=== PATIENT | male | born 1980 | race Caucasian/White ===

== ENCOUNTER 2018-10-18 21:46 | Inpatient (IN) | payer BC ==
[~2018-10-18] VITALS: Ht 177.8 cm; Wt 80.3 kg
[2018-10-18 22:42] VITALS: Ht 177.8 cm; Wt 80.3 kg
[2018-10-18 23:38] LABS: BASOPHIL % 1.1 % (0-2); PLATELET COUNT 266 x10^3mcL (130-400); RED CELL DISTRIBUTION WIDTH 12.4 % (11.5-14.5)
[2018-10-18 23:55] LABS: CALCIUM 8.8 mg/dL (8.5-10.1); CARBON DIOXIDE 19.2 mmol/L (21-32); CHLORIDE SERUM 107 mmol/L (98-107); CREATININE SERUM 1.1 mg/dL (0.7-1.3); GFR1 > 60 mL/min; GLUCOSE SERUM 112 mg/dL (74-106); POTASSIUM SERUM 3.5 mmol/L (3.5-5.1); SODIUM SERUM 140 mmol/L (136-145)
[2018-10-19] LABS: ALKALINE PHOSPHATASE 48 U/L (46-116); ALT/SGPT 39 U/L (16-63); AST/SGOT 22 U/L (15-37); BILIRUBIN TOTAL 0.6 mg/dL (0.20-1.00); LIPASE 80 IU/L (73-393); TOTAL PROTEIN, SERUM 7.8 g/dL (6.4-8.2)
[2018-10-19] MEDS ORDERED: AMOXICILLIN500 M1 PO (01:54)
[2018-10-19] MEDS ORDERED: IBUPROFEN400 MG PO (01:55)
[2018-10-19 04:09] LABS: MAGNESIUM 1.9 mg/dL (1.8-2.4); PHOSPHOROUS 1.1 mg/dL (2.5-4.9)
[2018-10-19 04:10] LABS: CHOLESTEROL/HDL RATIO 2.3
[2018-10-19 04:15] LABS: T3 TOTAL 1.6 ng/mL
[2018-10-19 04:22] LABS: FREE T4 1.28 ng/dL (0.76-1.46); FREE THYROXINE INDEX 3.5 ug/dL (1.4-4.5); T4(THYROXINE) 9.6 ug/dL (4.7-13.3)
[2018-10-19 04:22] LABS: microscopic required? YES; urine erythrocyte TRACE (NEGATIVE)
[2018-10-19 04:36] LABS: AMPHETAMINE QUAL UR NONE DETECTED (See below)
[2018-10-19 05:31] LABS: CALCIUM 8.2 mg/dL (8.5-10.1); CHLORIDE SERUM 107 mmol/L (98-107); CREATININE SERUM 1.1 mg/dL (0.7-1.3); GFR1 > 60 mL/min; GLUCOSE SERUM 125 mg/dL (74-106); POTASSIUM SERUM 3.5 mmol/L (3.5-5.1); SODIUM SERUM 138 mmol/L (136-145)
[2018-10-19 05:38] LABS: BASOPHIL % 0.2 % (0-2); PLATELET COUNT 287 x10^3mcL (130-400); RED CELL DISTRIBUTION WIDTH 12.4 % (11.5-14.5)
[2018-10-19 11:17] VITALS: BP 125/71
[2018-10-19] MEDS ORDERED: LEVAQUIN750 MG PO (13:39)
[2018-10-19] MEDS ORDERED: FLA500 PO (13:40)
[2018-10-19] MEDS ORDERED: LAC PO (13:41)
[2018-10-19 16:14] VITALS: BP 125/71
== END 2018-10-19 16:37 | disposition home or self-care (01) | DRG 871 ==
LOC: ED 21:46 → MU 10-19 02:43
PROVIDERS: Emergency Medicine; Family Medicine; ADMIT Internal Medicine
DX: A41.9 Sepsis, unspecified organism (principal); K65.8 Other peritonitis; R65.20 Severe sepsis without septic shock; K52.9 Noninfective gastroenteritis and colitis, unspecified; K21.9 Gastro-esophageal reflux disease without esophagitis; E83.39 Other disorders of phosphorus metabolism
CPT/HCPCS: 83880; 84439; 87046; 87046-59; G0480; J1956; J2270; J2405; J2765; J3490; J7030; Q0092